=== PATIENT | male | born 1980 | race African-American/Black ===

== ENCOUNTER 2017-08-15 01:32 | Emergency (ER) | payer OTHER ==
[~2017-08-15] VITALS: Ht 190.5 cm; Wt 90.0 kg
[2017-08-15 01:39] VITALS: BP 165/81; PULSE 85; RESP 16; TEMP 98.6; O2SAT 98
--- NOTE | 2017-08-15 02:05 | PD ---
HPI Chief Complaint: Psychiatric Symptoms Time Seen by Provider: 02:00 Travel History International Travel<30 days: No Contact w/Intl Traveler<30days: No Traveled to known affect area: No History of Present Illness HPI 36-year-old male with no documented psychiatric history presents the emergency department under [place] act for acute psychosis. Patient has been increasingly paranoid. He is responding to internal stimuli. Patient states people are talking to him. He was taken into law enforcement custody, watch, and then released. Upon discharge from their facility, he contacted police stating that people were after him. They decided to bring him here under Ford act. Patient does not offer much history except for that people are following him. He reports being paranoid. He states this has not happened to him before. He adamantly denies any psychiatric history. He denies any illicit drug use. He has no other symptoms to report. [facility] Past Medical History Medical History: Denies Significant Hx Past Surgical History Surgical History: No Previous Surgery Social History Alcohol Use: Yes Tobacco Use: Yes Substance Use: Yes Allergies-Medications (Allergen,Severity, Reaction): Coded Allergies: No Known Allergies (Unverified , 08/15/17) Reported Meds & Prescriptions Reported Meds & Active Scripts Active No Active Prescriptions or Reported Medications Review of Systems Except as stated in HPI: all other systems reviewed are Neg Physical Exam Narrative GENERAL: Well-nourished male patient, ambulatory, with bizarre affect, very watchful and paranoid activity, in no acute distress SKIN: Focused skin assessment warm/dry. HEAD: Atraumatic. Normocephalic. EYES: Pupils equal and round. No scleral icterus. No injection or drainage. ENT: No nasal bleeding or discharge. Mucous membranes pink and moist. NECK: Trachea midline. No JVD. CARDIOVASCULAR: Regular rate and rhythm. No murmur appreciated. RESPIRATORY: No accessory muscle use. Clear to auscultation. Breath sounds equal bilaterally. GASTROINTESTINAL: Abdomen soft, non-tender, nondistended. Hepatic and splenic margins not palpable. MUSCULOSKELETAL: No obvious deformities. No clubbing. No cyanosis. No edema. NEUROLOGICAL: Awake and alert. No obvious cranial nerve deficits. Motor grossly within normal limits. Normal speech. Data Data Last Documented VS Vital Signs Date Time Temp Pulse Resp B/P (MAP) Pulse Ox O2 Delivery O2 Flow Rate FiO2 08/15/17 01:39 98.6 85 16 165/81 (109) 98 Orders Orders Complete Blood Count With Diff (08/15/17 02:00) Thyroid Stimulating Hormone (08/15/17 02:00) Basic Metabolic Panel (Bmp) (08/15/17 02:00) Psych Screen (08/15/17 02:00) Drug Screen, Random Urine (08/15/17 02:00) Alcohol (Ethanol) (08/15/17 02:00) Olanzapine (Zyprexa) (08/15/17 02:15) MDM Medical Decision Making Medical Screen Exam Complete: Yes Emergency Medical Condition: Yes Medical Record Reviewed: Yes Differential Diagnosis Acute psychosis versus mood disorder versus personality disorder versus substance abuse. Narrative Course 36-year-old male presents emergency department under Ford act for psychiatric evaluation. Patient appears paranoid and anxious. He is responding to internal stimuli. I have discussed with the patient medication that may help him with these symptoms. He agrees to this. I will give him 1 dose of Zyprexa by mouth. Lab work has been ordered for medical clearance. Patient requests that we contact police who brought him in. They are asked to return to the room prior to leaving the facility. He tells the police that he prefers to be in a locked unit. Patient be transferred to the psychiatric pod. He is medically cleared to undergo psychiatric screening for further evaluation and disposition. Diagnosis Primary Impression: Paranoia (psychosis) Scripts No Active Prescriptions or Reported Meds Condition: Haydee Moscoso Aug 15, 2017 02:05
[2017-08-15] MEDS ORDERED: OLANZapine 10 MG TAB PO ONE (02:15)
[2017-08-15 02:25] LABS: AUTOMATED NEUTROPHIL # 5.2 TH/MM3 (1.8-7.7); BASOPHIL # 0.1 TH/MM3 (0-0.2); BASOPHIL % 0.9 % (0.0-2.0); EOSINOPHIL % 0.6 % (0.0-4.0); HEMATOCRIT 43.9 % (39.0-51.0); HEMOGLOBIN 14.9 GM/DL (13.0-17.0); LYMPH % 20.4 % (9.0-44.0); LYMPHOCYTE # 1.5 TH/MM3 (1.0-4.8); MEAN CELL VOLUME 85.9 FL (80.0-100.0); MEAN CORPUSCULAR HEMOGLOBIN 29.2 PG (27.0-34.0); MEAN PLATELET VOLUME 8.1 FL (7.0-11.0); MONO % 5.8 % (0.0-8.0); MONOCYTE # 0.4 TH/MM3 (0-0.9); NEUT % 72.3 % (16.0-70.0); PLATELET COUNT 333 TH/MM3 (150-450); WHITE BLOOD COUNT 7.2 TH/MM3 (4.0-11.0)
[2017-08-15 02:40] LABS: BICARBONATE 25.8 MEQ/L (21.0-32.0); BLOOD UREA NITROGEN 14 MG/DL (7-18); CALCIUM 9.2 MG/DL (8.5-10.1); CHLORIDE 105 MEQ/L (98-107); CREATININE 1.33 MG/DL (0.60-1.30); GLOMERULAR FILTRATION RATE 60 ML/MIN (>89); GLUCOSE,RANDOM 105 MG/DL (74-106); SODIUM (NA) 139 MEQ/L (136-145)
[2017-08-15 14:54] VITALS: BP 142/78; TEMP 98.2
--- NOTE | 2017-08-15 14:56 | PD ---
Physical Exam Time Seen by Provider: 14:54 CODY Kendall has evaluated the patient, lifted the Ford act and cleared the patient for discharge. Data Data Last Documented VS Vital Signs Date Time Temp Pulse Resp B/P (MAP) Pulse Ox O2 Delivery O2 Flow Rate FiO2 08/15/17 01:39 98.6 85 16 165/81 (109) 98 Orders Orders Complete Blood Count With Diff (08/15/17 02:00) Thyroid Stimulating Hormone (08/15/17 02:00) Basic Metabolic Panel (Bmp) (08/15/17 02:00) Psych Screen (08/15/17 02:00) Drug Screen, Random Urine (08/15/17 02:00) Alcohol (Ethanol) (08/15/17 02:00) Olanzapine (Zyprexa) (08/15/17 02:15) Diet Regular Basic (08/15/17 Breakfast) Diet Regular Basic (08/15/17 Lunch) Labs Laboratory Tests Test 08/15/17 01:42 08/15/17 02:55 White Blood Count 7.2 TH/MM3 Red Blood Count 5.10 MIL/MM3 Hemoglobin 14.9 GM/DL Hematocrit 43.9 % Mean Corpuscular Volume 85.9 FL Mean Corpuscular Hemoglobin 29.2 PG Mean Corpuscular Hemoglobin Concent 34.0 % Red Cell Distribution Width 14.0 % Platelet Count 333 TH/MM3 Mean Platelet Volume 8.1 FL Neutrophils (%) (Auto) 72.3 % Lymphocytes (%) (Auto) 20.4 % Monocytes (%) (Auto) 5.8 % Eosinophils (%) (Auto) 0.6 % Basophils (%) (Auto) 0.9 % Neutrophils # (Auto) 5.2 TH/MM3 Lymphocytes # (Auto) 1.5 TH/MM3 Monocytes # (Auto) 0.4 TH/MM3 Eosinophils # (Auto) 0.0 TH/MM3 Basophils # (Auto) 0.1 TH/MM3 CBC Comment DIFF FINAL Differential Comment Blood Urea Nitrogen 14 MG/DL Creatinine 1.33 MG/DL Random Glucose 105 MG/DL Calcium Level 9.2 MG/DL Sodium Level 139 MEQ/L Potassium Level 3.7 MEQ/L Chloride Level 105 MEQ/L Carbon Dioxide Level 25.8 MEQ/L Anion Gap 8 MEQ/L Estimat Glomerular Filtration Rate 60 ML/MIN Thyroid Stimulating Hormone 3rd Gen 1.790 uIU/ML Ethyl Alcohol Level LESS THAN 3 MG/DL Urine Opiates Screen NEG Urine Barbiturates Screen NEG Urine Amphetamines Screen NEG Urine Benzodiazepines Screen NEG Urine Cocaine Screen NEG Urine Cannabinoids Screen NEG MDM Supervised Visit with [facility]: No Narrative Course CODY Patel has evaluated the patient, lifted the Ford act and cleared the patient for discharge. Patient contracts safety. Denies suicidal or homicidal ideations. Patient will be provided community resource packet to [facility] for follow-up. Has friends and family for support. Patient was medically cleared by alternate provider prior to psych screening. Patient has been evaluated by psychiatry and and is now cleared for discharge. Diagnosis Primary Impression: Paranoia (psychosis) Referrals: [facility] (Out patient) [facility] Primary Care Physician Psychiatrist [facility] Patient Instructions: Brief Psychotic Disorder (ED), General Instructions, Mood Disorders (ED), Paranoid Personality Disorder (ED) Additional Instruction: Contract safety to your self and others Follow-up with psychiatry Follow-up with primary care provider Follow-up with Deshawn Navarro Return to the emergency department immediately with worsening of symptoms Med/Other Pt SpecificInfo: No Change to Meds, No Meds Exist/No RX given Scripts No Active Prescriptions or Reported Meds Disposition: 01 DISCHARGE HOME Condition: Stable Theresa Lynne Aug 15, 2017 14:56
--- NOTE | 2017-08-15 14:57 | PD ---
History of Present Illness Chief Complaint: Psychiatric Symptoms Time Seen by Provider: 14:30 Travel History International Travel<30 Days: No Contact w/Intl Traveler<30days: No Known affected area: No Legal Status Legal Status: Ford Act [place] Act Signed By: Davi Stallings History of Present Illness: History of Present Illness HPI 36-year-old, -Tong[place], single male with no documented or reported psychiatric history who presents the emergency department under Ford act for acute psychosis. The patient reports that he called the police to inform them that there were multiple cars chasing him with long guns. He also stated he did not feel safe with people chasing him. He advised the police that he threw a fully loaded handgun [place] [address]. It is also alleged that the patient had been using narcotics. As per documentation the patient had been taken into law enforcement custody and then released. He denies any other previous episodes of paranoia and denies any previous psychiatric history. He received 10 mg of Zyprexa while in the ED. Patient has slept for the remainder of the time that he has been here. EMR is reviewed. No previous contact with [facility] psychiatry. Current toxicology is negative. Patient is seen. He is asleep but awakens with verbal prompting. He is alert, oriented, calm. His speech is clear, logical of low tone. His affect is rather blunted. He is guarded. He denies feeling depressed. Patient denies that he is experiencing any hallucinations and does not appear internally preoccupied. He denies any thought of wanting to harm himself or to harm anyone else. He still believes that people were actually after him and that he had not slept for several days due to paranoid thoughts. He continues to deny that he uses any substances. I have offered him the opportunity to remain in the hospital for further evaluation but the patient does not want to stay in the hospital. Patient is wanting to be discharged as he is employed and wants to return back to the [place] area. [facility] Past Medical History Medical History: Denies Significant Hx Past Surgical History Surgical History: No Previous Surgery Psychiatric History Psychiatric History Hx Psychiatric Treatment: Patient denies any hx of inpatient or outpatient psychiatric treatment. No history of suicide attempt History of Inpatient Treatment: No Guns or firearms in home: No (States he threw a gun he had out the car window) Social History Patient is from [place]. He states he does not have any family here in [place]. He works for a [employer] company and has done so for about 1 year. Patient with recent legal history for unknown charges Hx Alcohol Use: Yes Hx Tobacco Use: Yes Hx Substance Use: No Hx of Substance Use Treatment: No Family Psychiatric History None reported Allergies-Medications (Allergen,Severity, Reaction): Coded Allergies: No Known Allergies (Unverified , 08/15/17) Reported Meds & Prescriptions Reported Meds & Active Scripts Active No Active Prescriptions or Reported Medications Review of Systems Psychiatric: COMPLAINS OF: Delusions Except as stated in HPI: all other systems reviewed are Neg Mental Status Examination Appearance: Appropriate (Dressed in hospital paper scrubs and maintaining basic hygiene) Consciousness: Alert Orientation: x4 Motor Activity: Normal gait Speech: Unremarkable, Other (Low tone) Language: Adequate Fund of Knowledge: Adequate Attention and Concentration: Adequate Memory: Unremarkable Mood: Appropriate Affect: Blunt Thought Process & Associations: Intact, Logical, Goal directed Thought Content: Delusional Hallucination Type: None Delusion Type: Paranoid (That unknown people were following him) Suicidal Ideation: No Suicidal Plan: No Suicidal Intention: No Homicidal Ideation: No Homicidal Plan: No Homicidal Intention: No Insight: Fair Judgment: Adequate MDM Medical Decision Making Medical Record Reviewed: Yes Assessment/Plan 36-year-old male with no reported psychiatric history who after being incarcerated was released and he later called the police reporting that he was feeling like people were after him. He states that he had a gun he threw out the car window. He was also reporting he did not feel safe with people chasing him. The patient denies having used any substances and has a negative toxicology but they are substances that we do not test for in our drug panel. The patient denies any suicidal or homicidal ideation. The patient has not been responding to internal stimuli although he appears somewhat guarded. The patient has not been agitated while in [facility]. He is requesting to be discharged and does not present any criteria to be held against his will at this time. He was offered the opportunity to remain in the hospital for further observation but he has declined stating he needs to get back to [place] to work. At this time the patient has slapped and appears that the psychosis has resolved. He is psychiatrically clear for discharge from the ED and the Ford act is lifted. Orders Orders Complete Blood Count With Diff (08/15/17 02:00) Thyroid Stimulating Hormone (08/15/17 02:00) Basic Metabolic Panel (Bmp) (08/15/17 02:00) Psych Screen (08/15/17 02:00) Drug Screen, Random Urine (08/15/17 02:00) Alcohol (Ethanol) (08/15/17 02:00) Olanzapine (Zyprexa) (08/15/17 02:15) Diet Regular Basic (08/15/17 Breakfast) Diet Regular Basic (08/15/17 Lunch) Results Vital Signs Date Time Temp Pulse Resp B/P (MAP) Pulse Ox O2 Delivery O2 Flow Rate FiO2 08/15/17 01:39 98.6 85 16 165/81 (109) 98 Laboratory Tests Test 08/15/17 01:42 08/15/17 02:55 White Blood Count 7.2 Red Blood Count 5.10 Hemoglobin 14.9 Hematocrit 43.9 Mean Corpuscular Volume 85.9 Mean Corpuscular Hemoglobin 29.2 Mean Corpuscular Hemoglobin Concent 34.0 Red Cell Distribution Width 14.0 Platelet Count 333 Mean Platelet Volume 8.1 Neutrophils (%) (Auto) 72.3 Lymphocytes (%) (Auto) 20.4 Monocytes (%) (Auto) 5.8 Eosinophils (%) (Auto) 0.6 Basophils (%) (Auto) 0.9 Neutrophils # (Auto) 5.2 Lymphocytes # (Auto) 1.5 Monocytes # (Auto) 0.4 Eosinophils # (Auto) 0.0 Basophils # (Auto) 0.1 CBC Comment DIFF FINAL Differential Comment Blood Urea Nitrogen 14 Creatinine 1.33 Random Glucose 105 Calcium Level 9.2 Sodium Level 139 Potassium Level 3.7 Chloride Level 105 Carbon Dioxide Level 25.8 Anion Gap 8 Estimat Glomerular Filtration Rate 60 Thyroid Stimulating Hormone 3rd Gen 1.790 Ethyl Alcohol Level LESS THAN 3 Urine Opiates Screen NEG Urine Barbiturates Screen NEG Urine Amphetamines Screen NEG Urine Benzodiazepines Screen NEG Urine Cocaine Screen NEG Urine Cannabinoids Screen NEG Diagnosis Primary Impression: Brief psychotic disorder Psychiatrically Cleared: Yes Med/ Other Pt Specific Info: No Meds Exist/No RX given Prescriptions No Active Prescriptions or Reported Meds Disposition: 01 DISCHARGE HOME Condition: Stable Amanda RockP Aug 15, 2017 14:57
== END 2017-08-15 15:50 | disposition home or self-care (01) ==
LOC: NEPJ 01:32
DX: F23 Brief psychotic disorder (principal); Z72.0 Tobacco use
CPT/HCPCS: 80048; 80307; 84443; 85025; 99283